=== PATIENT | male | born 1975 | race Caucasian/White ===

== ENCOUNTER 2017-02-13 14:17 | Inpatient (IN) | payer MEDICAID ==
[~2017-02-13] VITALS: Ht 172.7 cm; Wt 76.4 kg
[2017-02-13 14:24] VITALS: BP_SYST 133
[2017-02-13 14:40] LABS: EOSINOPHILS # (AUTO) 1.1 K/uL (0.0-0.4); EOSINOPHILS % (AUTO) 8.8 % (0.0-4.0); HEMATOCRIT 49.9 % (36-54); HEMOGLOBIN 16.3 g/dL (14.0-18.0); LYMPHOCYTES # (AUTO) 2.2 K/uL (1.0-5.5); LYMPHOCYTES % (AUTO) 18.5 % (20.5-51.5); MEAN CORPUSCULAR HEMOGLOBIN 29 pg (27-31); MEAN CORPUSCULAR HGB CONC 33 % (32-36); MEAN CORPUSCULAR VOLUME 89 fL (79.0-98.0); MONOCYTES # (AUTO) 0.6 K/uL (0.0-1.0); MONOCYTES % (AUTO) 5.3 % (1.7-9.3); PLATELET COUNT (AUTO) 203 K/uL (130-430); RED BLOOD CELL COUNT(AUTO) 5.59 MIL/uL (4.2-6.2); RED CELL DISTRIBUTION WIDTH 12.3 % (9.0-15.0); WHITE BLOOD COUNT (AUTO) 12.1 K/uL (4.8-10.8)
[2017-02-13 14:43] LABS: BILIRUBIN,URINE NEGATIVE (NEGATIVE); BLOOD, URINE 1+ (NEGATIVE); CLARITY/URINE CLEAR (CLEAR); COLOR,URINE YELLOW (YELLOW); GLUCOSE,URINE NEGATIVE (NEGATIVE); KETONES,URINE NEGATIVE (NEGATIVE); LEUKOCYTE ESTERASE ,URINE NEGATIVE (NEGATIVE); NITRITE, URINE NEGATIVE (NEGATIVE); PROTEIN URINE NEGATIVE (NEGATIVE); UROBILINOGEN,URINE 0.2 (0.2-1.0)
[2017-02-13 14:44] LABS: BASOPHILS % (AUTO) 0.2 % (0.0-2.0); NEUTROPHILS # (AUTO) 8.2 K/uL (1.8-7.7); NEUTROPHILS % (AUTO) 67.2 % (40.0-70.0)
[2017-02-13 14:57] LABS: BACTERIA,URINE RARE /HPF (None Seen); WBC,URINE 0-3 /HPF (0-3)
[2017-02-13 14:58] LABS: MUCUS,URINE 1+ /LPF (None Seen)
[2017-02-13 15:00] LABS: CALCIUM 9.6 mg/dL (8.4-11.0); CREATININE 0.76 mg/dL (0.55-1.30); POTASSIUM 3.9 mmol/L (3.5-5.1)
[2017-02-13 15:04] LABS: ALBUMIN 4.1 g/dL (3.4-4.8)
--- NOTE | 2017-02-13 15:19 | NUR ---
Pt complain of abdominal pain since this morning. Pt denies fever, n/v or diarrhea. Pt states has regular bowel movements. Bowel sounds are active x 4, no other injuries/complaints per pt or noted.
--- NOTE | 2017-02-13 15:21 | NUR ---
ER Dr. Martin at bedside examining patient.
[2017-02-13] MEDS ORDERED: NACL 0.9% 1,000 ML IV ONE ×2 (15:30→16:15)
[2017-02-13] MEDS ORDERED: HYDROmorphone 1 MG INJ. 1 MG/ML AMPUL IVP ONE (15:30)
--- NOTE | 2017-02-13 15:52 | NUR ---
Medications were given, pt tolerated well. No adverse reaction, will continue to monitor.
[2017-02-13] MEDS ORDERED: HYDROmorphone 2 MG/ML VIAL IVP ONE ×2 (16:15→20:30)
[2017-02-13] MEDS ORDERED: IOHEXOL 100 ML IV ONE (16:17)
--- NOTE | 2017-02-13 16:17 | NUR ---
Pt went to radiology in stable condition.
--- NOTE | 2017-02-13 16:17 | NUR ---
Medication was given, pt tolerated well. No adverse reaction, will continue to monitor.
--- NOTE | 2017-02-13 16:40 | NUR ---
Pt returned from radiology in stable condition
--- NOTE | 2017-02-13 17:39 | NUR ---
Pt is resting in bed comfortably with no noted distress or discomfort.
--- NOTE | 2017-02-13 17:40 | NUR ---
Ultrasound is at bedside.
--- NOTE | 2017-02-13 17:44 | NUR ---
TRACY Hobson at bedside explaining results to patient.
[2017-02-13 18:27] LABS: BARBITURATE, URINE NEGATIVE (NEG <=200); BENZODIAZEPINE, URINE NEGATIVE (NEG <=150); CANNABINOID, URINE NEGATIVE (NEG <=50); COCAINE, URINE NEGATIVE (NEG <=150); METHAMPHETAMINES SCREEN,URINE NEGATIVE (NEG <=500); OPIATE, URINE NEGATIVE (NEG <=100); PHENCYCLIDINE SCREEN,URINE NEGATIVE (NEG <=25); UR TRICYCLIC ANTIDEPRESSANTS NEGATIVE (NEG <=300); URINE AMPHETAMINE NEGATIVE (NEG <=500); URINE METHADONE NEGATIVE (NEG <=200); URINE OXYCODONE SCREEN NEGATIVE (NEG <=100); URINE PROPOXYPHENE SCREEN NEGATIVE (NEG <=300)
--- NOTE | 2017-02-13 18:42 | NUR ---
Pt is resting comfortably in bed with no noted distress or discomfort.
--- NOTE | 2017-02-13 19:01 | NUR ---
Medication reconciliation completed with information provided by patient. Pt has no home medications
--- NOTE | 2017-02-13 19:05 | NUR ---
Patient will be admitted to care of Dr. Lama. Admitted to Med Surg unit. Will go to room 123A. Belongings list completed. Summary report printed. Report will be given at bedside.
--- NOTE | 2017-02-13 19:10 | NUR ---
ADMISSION NOTE Received patient from ER via gurney. Patient admitted with diagnosis of Abdominal pain r/o appy. Patient is awake, alert, oriented X 4. Patient oriented to hospital room, call light, toileting, pain management and safety-teach back done. Patient informed that Trinidad will be her nurse and that their room number is 123A. Personal belongings checked and Belongings List documented. Call light within reach.
[2017-02-13 19:20] VITALS: BP_SYST 118
--- NOTE | 2017-02-13 19:50 | NUR ---
PAGED I PAGED DR. MIKE @ [address] [facility] [employer] DR. CANALES [employer] SUPERVISOR FOR DR. MIKE I CALLED SECOND TIME @ 2004 I SPOKE WITH [facility] [employer]CH[employer] DR. CANALES CALLED BACK @ 2008
--- NOTE | 2017-02-13 20:00 | NUR ---
Opening notes. Received patient in bed,report from admit nurse,alert/oriented,c/o pain level 10/10;came from ER,with no order;Anastasia Mccarty called for orders, then,he called back later on,ordered dilaudid 2mg ivp x1 dose, and stated that he will come to see the patient in 1hr1/2, also requested consult with Dr Horn.
--- NOTE | 2017-02-13 20:14 | NUR ---
PAGED I PAGED DR. CAMERON @ 2013 I SPOKE WITH MARIA A CAMERON CALLED BACK @ 2016
[2017-02-13 20:30] VITALS: BP_SYST 130
[2017-02-13] MEDS ORDERED: HYDROmorphone 2 MG/ML VIAL ONE (20:37)
[2017-02-13] MEDS ORDERED: BUPIVACAINE /EPINEPHRINE/PF 0.5% 30 ML VIAL INJ ONE (20:44)
[2017-02-13] MEDS ORDERED: MIDAZOLAM HCL 5 MG/ML VIAL (VERSED) IV ONE (20:44)
[2017-02-13] MEDS ORDERED: LR 1,000 ML IV.SOLN IV ONE (20:44)
[2017-02-13] MEDS ORDERED: MEPERIDINE HCL/PF 100 MG/ML AMP IM ONE (20:44)
[2017-02-13] MEDS ORDERED: SEVOFLURANE 15 MIN GAS INH ONE (20:44)
[2017-02-13] MEDS ORDERED: NS 1000 ML BAG IV ONE (20:44)
[2017-02-13] MEDS ORDERED: ROCURONIUM BROMIDE 10 MG/ML (ZEMURON) IV ONE (20:44)
[2017-02-13] MEDS ORDERED: GLYCOPYRROLATE 0.2 MG/ML VIAL IJ ONE (20:44)
[2017-02-13] MEDS ORDERED: METOCLOPRAMIDE HCL 10 MG/2 ML VIAL IVP ONE (20:44)
[2017-02-13] MEDS ORDERED: NS IRRIG SOLN 1000 ML IR ONE (20:44)
[2017-02-13] MEDS ORDERED: fentaNYL CITRATE/PF 100 MCG/2 ML AMP IVP ONE (20:44)
[2017-02-13] MEDS ORDERED: PROPOFOL 200MG/ 20ML VIAL (DIPRIVAN) IV ONE (20:44)
[2017-02-13] MEDS ORDERED: KETOROLAC TROMETHAMINE 30 MG VIAL IVP ONE (20:44)
[2017-02-13] MEDS ORDERED: HYDROmorphone 2 MG/ML VIAL IVP PRN (20:45)
--- NOTE | 2017-02-13 20:55 | NUR ---
New Admit. Received patient in room, from ER,c/o pain level10/10,came with no orders; Anastasia Barber called for orders,then called back later,ordered to give Dilaudid 2mg ivp, x1 dose,and stated that he will be there to see the patient in1hr1/2,and also requested consult with Dr Horn.
--- NOTE | 2017-02-13 21:47 | NUR ---
PAGED I PAGED DR. CAMERON @ 1945 I SPOKE WITH ROSALES CAMERON CALLED BACK @ [address] ALLY CANALES IS CLIENT DIRECTOR FOR DR. MIKE
--- NOTE | 2017-02-13 22:25 | NUR ---
CONSULT I DID NOT CALL CONSULT BECAUSE DR. CAMERON IS HERE PT IS GOING FOR SURGERY SOON DR. CANALES IS HERE TOO
--- NOTE | 2017-02-13 22:46 | NUR ---
PAGED I PAGED DR. CAMERON @ [id number] I SPOKE WITH ROSALES LELIA CAMERON ANSWERED RIGHT AWAY
--- NOTE | 2017-02-13 23:00 | NUR ---
Patient to OR. Dr Lama came to see patient, at bed side;decided to take patient to surgery;the pain was too much to bear,he was moving back and forth in bed;last v/s=122/73,hr97,rr20,36xxp79% in RA,temp 99.3;to OR via stretcher accompanied OR staffs,and .
[2017-02-13 23:22] LABS: PROTHROMBIN TIME 10.9 SECS (9.5-12.5)
[2017-02-13] MEDS ORDERED: LR 1,000 ML IV ONE (23:35)
[2017-02-13] MEDS ORDERED: ePHEDrine sulfate 50 MG/ML VIAL IVP PRN (23:45)
[2017-02-13] MEDS ORDERED: NALBUPHINE HCL 10 MG/ML AMP IVP PRN (23:45)
[2017-02-13] MEDS ORDERED: DIPHENHYDRAMINE INJ 50 MG/ML VIAL IVP PRN (23:45)
[2017-02-13] MEDS ORDERED: fentaNYL CITRATE/PF 100 MCG/2 ML AMP IVP PRN (23:45)
[2017-02-13] MEDS ORDERED: NALOXONE HCL 0.4 MG/ML AMP (NARCAN) IVP PRN (23:45)
[2017-02-13] MEDS ORDERED: ONDANSETRON HCL 4 MG/2 ML VIAL IVP PRN ×2 (23:45)
--- NOTE | 2017-02-14 00:54 | NUR ---
Back from surgery. Awake alert/oriented,surgical sites at lower abd, x3 small ones, covered with 3, 2x2 gauze, no bleeding noted at this time,v/s=98.4,Hr86,RR20,b/p=94/73, 18ncv77% in RA,denies any pain at this time.
[2017-02-14] MEDS ORDERED: PIPERACILLIN/TAZOBACTAM 3.375 GM/VIAL (ZOSYN) IV ONE (01:08)
[2017-02-14] MEDS: D5NS 1,000 ML IV SCH ×2 (01:29→12:30)
[2017-02-14] MEDS: KETOROLAC TROMETHAMINE 30 MG VIAL IVP SCH ×4 (02:02→19:14)
[2017-02-14 03:36] VITALS: BP_SYST 90
[2017-02-14 05:50] VITALS: BP_SYST 133
[2017-02-14 06:28] LABS: BASOPHILS % (AUTO) 0.2 % (0.0-2.0); HEMATOCRIT 44.5 % (36-54); HEMOGLOBIN 14.7 g/dL (14.0-18.0); LYMPHOCYTES # (AUTO) 0.5 K/uL (1.0-5.5); LYMPHOCYTES % (AUTO) 4.8 % (20.5-51.5); MEAN CORPUSCULAR HEMOGLOBIN 29 pg (27-31); MEAN CORPUSCULAR HGB CONC 33 % (32-36); MEAN CORPUSCULAR VOLUME 88 fL (79.0-98.0); MONOCYTES # (AUTO) 0.2 K/uL (0.0-1.0); MONOCYTES % (AUTO) 1.6 % (1.7-9.3); NEUTROPHILS # (AUTO) 10.3 K/uL (1.8-7.7); NEUTROPHILS % (AUTO) 93.4 % (40.0-70.0); PLATELET COUNT (AUTO) 173 K/uL (130-430); RED BLOOD CELL COUNT(AUTO) 5.08 MIL/uL (4.2-6.2); RED CELL DISTRIBUTION WIDTH 12.5 % (9.0-15.0)
[2017-02-14 06:52] LABS: ALBUMIN 3.3 g/dL (3.4-4.8); CALCIUM 8.8 mg/dL (8.4-11.0); CREATININE 0.78 mg/dL (0.55-1.30); POTASSIUM 3.7 mmol/L (3.5-5.1); TOTAL BILIRUBIN 1.6 mg/dL (0.0-1.0)
--- NOTE | 2017-02-14 07:17 | NUR ---
Closing noted. Condition stable, slept all night, no c/o pain, surgical site intact, no bleeding noted, zosyn iv given, no reaction occurred, v/s stable, last 02sat 96% in RA,now, in bed sleeping with no distress,call light in reach, bed in low position, bed alarm on.
[2017-02-14 08:00] VITALS: BP_SYST 98
--- NOTE | 2017-02-14 08:00 | NUR ---
initial notes rec patient asleep but arousable to stimuli. at bedside. ivf infusing well on the l ac. no infiltration noted. resp easy and unlabored. hob slightly elevated . no acute distress. resting comfortably and denies pain. bed in low position and side rails up and locked. call light withn reached and knows when to call for assistance.
--- NOTE | 2017-02-14 10:00 | NUR ---
rounds sleeps at intervals. resting comfortably at this time.
--- NOTE | 2017-02-14 12:19 | NUR ---
rounds sleeps at intervals. no acute distress. call light within reached. no pain noted.
[2017-02-14 12:37] VITALS: BP_SYST 98
[2017-02-14] MEDS: PIPERACILLIN/TAZO 3.375/DEX-IS 50 ML IV SCH ×2 (12:59→18:01)
--- NOTE | 2017-02-14 15:00 | NUR ---
rounds seen by dr castro and stated that patient can be d/c. will call dr espinoza for a d/c order. ambulates to the br.
[2017-02-14 17:44] VITALS: BP_SYST 85
[2017-02-14 20:14] VITALS: BP_SYST 97
[2017-02-14] MEDS ORDERED: METR500T PO (20:18)
[2017-02-14] MEDS ORDERED: LEVO500T20 PO (20:18)
== END 2017-02-14 20:45 | disposition home or self-care (01) | DRG 225 ==
LOC: SED 14:17 → SMU 19:05
PROVIDERS: ADMIT Internal Medicine Hospice and Palliative Medicine; ATTEND Internal Medicine Hospice and Palliative Medicine
PROC: 0DTJ4ZZ Resection of Appendix, Percutaneous Endoscopic Approach (ICD-10-PCS; principal; 2017-02-14)
DX: K35.80 Unspecified acute appendicitis (principal); F17.290 Nicotine dependence, other tobacco product, uncomplicated; K82.8 Other specified diseases of gallbladder
CPT/HCPCS: 36415; 76700-TC; 80053; 80307; 81000-TC; 82150-TC; 83690-TC; 85025; 85610-TC; 85730-TC; 87081; 88304; 93005; 96361; 96374; 96375; 99285; C1727; J1170; J1885; J2175; J2250; J2543; J2704; J2765; J3010; J3490; J7030; J7042; J7120; Q9967